=== PATIENT | male | born 1980 | race Caucasian/White ===

== ENCOUNTER 2020-09-01 14:12 | Inpatient (IN) | payer BC, MEDICAID ==
[2020-08-31 22:50] VITALS: BP 120/72
[~2020-09-01] VITALS: Ht 188 cm; Wt 167.8 kg
[~2020-09-01 14:12] MED LIST: OMEP20TA20 PO
[2020-09-01] MEDS ORDERED: IBUP-1957 PO (14:32)
[2020-09-01] MEDS ORDERED: HYDR-4209 PO (14:32)
[2020-09-01] MEDS ORDERED: ROSU10TA2 PO (14:32)
[2020-09-01] MEDS ORDERED: AMLO-212 PO (14:32)
[2020-09-01] MEDS ORDERED: IRBE1TAB33 PO (14:32)
[2020-09-01 15:08] LABS: HEMATOCRIT 35.9 % (36.7-47.1); MEAN CORPUSCULAR HEMOGLOBIN 33.2 uug (23.8-33.4); MEAN CORPUSCULAR VOLUME 97.2 fL (73.0-96.2); PLATELET COUNT (AUTO) 393 K/uL (152-348)
[2020-09-01 15:14] LABS: CREATININE 0.9 mg/dL (0.6-1.3); POTASSIUM 3.4 mmol/L (3.5-5.1)
[2020-09-01 15:30] LABS: BILIRUBIN,DIRECT 0.4 mg/dL (0.0-0.2); BILIRUBIN,TOTAL 0.9 mg/dL (0.2-1.0); TOTAL PROTEIN, SERUM 7.6 g/dL (6.4-8.2)
--- NOTE | 2020-09-01 16:59 | NUR ---
[facility] paged for admission as requested br Jasiel Barboza on-call.
--- NOTE | 2020-09-01 19:15 | NUR ---
Recieved report from Jeff ERICKSON.
--- NOTE | 2020-09-01 20:22 | NUR ---
Gave report to Blanca ERICKSON
--- NOTE | 2020-09-01 20:35 | NUR ---
Pt. admitted to Tele , under care of Jasiel Betancourt DNP Belongs List completed
--- NOTE | 2020-09-01 21:00 | NUR ---
Patient admitted from ER to room number 304 per junior with diagnosis is left pleural effusion and O2 4lpnc, AAOX4, on media production operator and sinus tachycardia, will continue to monitor.
[2020-09-01] MEDS: ATORVASTATIN 40 MG TABLET PO SCH (21:24)
[2020-09-01] MEDS ORDERED: ACETAMINOPHEN 325 MG TABLET PO PRN (22:45)
[2020-09-01] MEDS ORDERED: MAGNESIUM HYDROXIDE 30 ML LIQUID UDC PO PRN (22:45)
[2020-09-01] MEDS ORDERED: Z GUARD REMEDY PASTE 57 GM TUBE TOP PRN (22:45)
[2020-09-01] MEDS ORDERED: ONDANSETRON 4 MG/2 ML VIAL IV PRN (22:45)
[2020-09-01] MEDS: HYDROCODONE/APAP 10-325 MG TABLET PO PRN (23:02)
[2020-09-01] MEDS: ZOLPIDEM 5 MG TABLET PO PRN (23:03)
[2020-09-01] MEDS: IV NS 1000 ML 1,000 ML IV PRN (23:05)
[2020-09-02 04:05] VITALS: BP 121/79
[2020-09-02] MEDS: HYDROCODONE/APAP 10-325 MG TABLET PO PRN ×3 (04:47→21:27)
[2020-09-02 06:11] LABS: HEMATOCRIT 34.9 % (36.7-47.1); MEAN CORPUSCULAR HEMOGLOBIN 33.3 uug (23.8-33.4); MEAN CORPUSCULAR VOLUME 98.1 fL (73.0-96.2); PLATELET COUNT (AUTO) 395 K/uL (152-348)
[2020-09-02] MEDS: PANTOPRAZOLE SODIUM 40 MG TABLET.DR PO SCH (06:18)
[2020-09-02 06:33] LABS: BILIRUBIN,TOTAL 0.9 mg/dL (0.2-1.0); CREATININE 0.9 mg/dL (0.6-1.3); MAGNESIUM 2.1 mg/dL (1.8-2.4); PHOSPHOROUS 4.3 mg/dL (2.5-4.9); POTASSIUM 3.8 mmol/L (3.5-5.1); TOTAL PROTEIN, SERUM 7.2 g/dL (6.4-8.2)
[2020-09-02 06:41] LABS: THYROID STIMULATING HORMONE 4.672 mIU/mL (0.358-3.740)
--- NOTE | 2020-09-02 07:10 | NUR ---
received patient in bed awake, HOB elevated, no complain of any SOB,pain or discomfort at this time. patient on 4L O2 via nasal canula with saturation at 95%. call light within reach will continue to monitor.
[2020-09-02] MEDS: LOSARTAN POTASSIUM 50 MG TABLET PO SCH (09:20)
[2020-09-02] MEDS: AMLODIPINE 5 MG TABLET PO SCH (09:20)
[2020-09-02] MEDS: HYDROCHLOROTHIAZIDE 25 MG TABLET PO SCH (09:21)
[2020-09-02 11:41] VITALS: BP 132/89
[2020-09-02] MEDS ORDERED: LORAZEPAM 2 MG/1 ML VIAL IV ONE (14:30)
[2020-09-02] MEDS ORDERED: MORPHINE SULFATE 2 MG/1 ML DISP.SYRIN IV ONE (14:30)
[2020-09-02] MEDS ORDERED: MORPHINE SULFATE 4 MG/1 ML DISP.SYRIN IV ONE (15:00)
--- NOTE | 2020-09-02 15:00 | NUR ---
thoracentesis done for patient 2000ml out, patient in stable condition. on 2L o2 saturation at 94%. no complains of SOB at this time. will continue to monitor.
[2020-09-02 15:59] VITALS: BP 130/78
--- NOTE | 2020-09-02 17:22 | NUR ---
patient on room air, no complain of any SOB. saturation at 92% -93% at this time. call light and belongings within reach. will continue to monitor.
--- NOTE | 2020-09-02 18:24 | NUR ---
patient awake in bed, in stable condition. on room air saturation at 93%. no complains of SOB at this time. call light and belongings within reach. will report to oncoming shift.
--- NOTE | 2020-09-02 20:00 | NUR ---
Patient complain of sob on exertion, going to the toilet. Patient oxygen sat 90% at room but sob, given 2 liter of oxygen via nc for assist, will cont to monitor.
[2020-09-02 20:05] VITALS: BP 106/55
[2020-09-02] MEDS: ATORVASTATIN 40 MG TABLET PO SCH (20:17)
--- NOTE | 2020-09-02 21:00 | NUR ---
Patient alert oriented, no sob no chest pain, tele monitor sinus rhtyhm sinus tachy, no complain of pain at this time. Patient seated upright on room air, call light within reach.
[2020-09-02] MEDS: ZOLPIDEM 5 MG TABLET PO PRN (21:48)
[2020-09-02] MEDS: IV NS 1000 ML 1,000 ML IV PRN (21:49)
[2020-09-02 22:00] LABS: HEMATOCRIT 34.7 % (36.7-47.1); MEAN CORPUSCULAR HEMOGLOBIN 33.4 uug (23.8-33.4); MEAN CORPUSCULAR VOLUME 97.5 fL (73.0-96.2); PLATELET COUNT (AUTO) 447 K/uL (152-348)
[2020-09-03] VITALS (11 sets, daily range): BP systolic 104–141; BP diastolic 58–85
[2020-09-03] MEDS: HYDROCODONE/APAP 10-325 MG TABLET PO PRN (06:13)
[2020-09-03] MEDS: PANTOPRAZOLE SODIUM 40 MG TABLET.DR PO SCH (06:13)
--- NOTE | 2020-09-03 06:40 | NUR ---
Patient alert oriented, no sob had chest pain due to episode of coughing, cont on pain management of chest and left shoulder due to coughing, Patient was kept on oxygen 2 liters nc for assist. cont to monitor.
--- NOTE | 2020-09-03 07:10 | NUR ---
received patient in bed sleeping in stable condition, HOB elevated, on 2L O2 saturation at 94%. no complains of SOB, pain or discomfort at this time. call light and belongings within reach. will continue to monitor.
[2020-09-03 07:46] LABS: CREATININE 0.9 mg/dL (0.6-1.3); MAGNESIUM 2.3 mg/dL (1.8-2.4); PHOSPHOROUS 3.8 mg/dL (2.5-4.9); POTASSIUM 3.6 mmol/L (3.5-5.1)
[2020-09-03 07:49] LABS: HEMATOCRIT 34.8 % (36.7-47.1); MEAN CORPUSCULAR HEMOGLOBIN 33.6 uug (23.8-33.4); MEAN CORPUSCULAR VOLUME 98.7 fL (73.0-96.2); PLATELET COUNT (AUTO) 411 K/uL (152-348)
[2020-09-03] MEDS: HYDROMORPHONE 1 MG/1 ML DISP.SYRIN IV PRN ×6 (08:23→23:34)
[2020-09-03] MEDS: AMLODIPINE 5 MG TABLET PO SCH (09:00)
[2020-09-03] MEDS: HYDROCHLOROTHIAZIDE 25 MG TABLET PO SCH (09:00)
[2020-09-03] MEDS: LOSARTAN POTASSIUM 50 MG TABLET PO SCH (09:00)
--- NOTE | 2020-09-03 11:15 | NUR ---
Patient observed while preparing for CT guided thoracentesis. Vitals stable although patient was mildly tachycardic throughout procedure at 112 bpm. Patient was hemodynamically stable and oxygen saturation maintained 98-100% on nonrebreather mask for comfort. Patient experienced severe abdominal pain acutely and was given one dose of 1mg Dilaudid IV push. Patient was later returned to room and Antrum chest tube was switch out and connected to wall suction.
[2020-09-03] MEDS ORDERED: HYDROMORPHONE 1 MG/1 ML DISP.SYRIN IV STA (11:30)
[2020-09-03] MEDS: IV NS 1000 ML 1,000 ML IV PRN (12:31)
--- NOTE | 2020-09-03 18:45 | NUR ---
patient back from guided CT guided thoracentesis, vitals stable, complaining of pain. pain medications given. positioned in bed for comfort. will continue to monitor.
--- NOTE | 2020-09-03 18:48 | NUR ---
patient in bed awake, HOB elevated, on 4L nasal canula saturation at 93%, pain medications provided. chest tube draining well with 650ml of serosanguineous fluid out. No complains of SOB at this time. safety precautions in place. call light and belongings within reach.will report to oncoming shift.
--- NOTE | 2020-09-03 20:00 | NUR ---
pain medication given per patient request , pain to his left side and back area 8/10.checked left side chest tube patent and inplaced to low wall suction . will continue to monitor level of pain .patient tolerating 02 at 4 l/min nasal cannula . saturation 98 %
[2020-09-03] MEDS: ATORVASTATIN 40 MG TABLET PO SCH (20:08)
[2020-09-03] MEDS: ALBUTEROL SULFATE 2.5 MG/3 ML NEBU NEB PRN (20:58)
--- NOTE | 2020-09-03 21:07 | NUR ---
called respiratory therapist for breathing treatment .patient on Ventolin q4 hours prn .
[2020-09-03] MEDS: ZOLPIDEM 5 MG TABLET PO PRN (23:35)
[2020-09-04] VITALS: BP 122/69
[2020-09-04] MEDS: IV NS 1000 ML 1,000 ML IV PRN ×2 (02:48→16:03)
[2020-09-04 04:05] VITALS: BP 122/71
[2020-09-04] MEDS ORDERED: HYDROMORPHONE 1 MG/1 ML DISP.SYRIN ONE (05:57)
[2020-09-04] MEDS: PANTOPRAZOLE SODIUM 40 MG TABLET.DR PO SCH (06:04)
[2020-09-04] MEDS: HYDROMORPHONE 1 MG/1 ML DISP.SYRIN IV PRN ×4 (06:04→21:46)
[2020-09-04 06:30] LABS: ABG BASE EXCESS -2.2 mmol/L; ABG HCO3 21.2 mmol/L; ABG PCO2 31.9 mmHg (35.0-45.0); ABG PO2 64.4 mmHg (75.0-100.0); ABG SITE LEFT RADIAL; ABG TOTAL HEMOGLOBIN 11.8 G/dL (13.5-18.0); COHb 1.2 % (0.5-1.5); MetHb 0.2 % (0.0-1.5); O2Hb 90.6 % (94.0-97.0); VENT MODE Nasal Cannula
[2020-09-04 07:42] LABS: HEMATOCRIT 35.4 % (36.7-47.1); MEAN CORPUSCULAR HEMOGLOBIN 33.5 uug (23.8-33.4); MEAN CORPUSCULAR VOLUME 97.5 fL (73.0-96.2); PLATELET COUNT (AUTO) 416 K/uL (152-348)
[2020-09-04 07:50] LABS: CREATININE 0.8 mg/dL (0.6-1.3); MAGNESIUM 2.3 mg/dL (1.8-2.4); POTASSIUM 3.8 mmol/L (3.5-5.1)
[2020-09-04 08:30] VITALS: BP 131/78
[2020-09-04] MEDS: HYDROCHLOROTHIAZIDE 25 MG TABLET PO SCH (08:36)
[2020-09-04] MEDS: AMLODIPINE 5 MG TABLET PO SCH (08:36)
[2020-09-04] MEDS: LOSARTAN POTASSIUM 50 MG TABLET PO SCH (08:37)
[2020-09-04] MEDS: ALBUTEROL SULFATE 2.5 MG/3 ML NEBU NEB PRN ×3 (11:06→21:02)
[2020-09-04 12:00] VITALS: BP 132/76
[2020-09-04 15:44] VITALS: BP 110/62
[2020-09-04] MEDS ORDERED: DEXAMETHASONE SOD PHOSPHATE 4 MG INJ IM ONE (16:15)
[2020-09-04] MEDS ORDERED: KETOROLAC TROMETHAMINE 30 MG INJ IVP ONE (16:15)
--- NOTE | 2020-09-04 18:41 | NUR ---
Patient cooperative with care, noted to have swollen left ankle with redness and pain requiring patient to utilize contact guard for ambulation. Reported to provider and noted that patient has a history of gout. Uric acid level drawn and reported to provider as normal. Patient assessed and acute injury ruled out, patient placed on steroids and toradol. Chest tube adequately draining and on wall suction. Repeated requests for IV dilaudid.
--- NOTE | 2020-09-04 19:00 | NUR ---
Received patient awake and full fowlers in bed. Patient is A/O x4 calm and cooperative. patient is on 4L NC and has a pigtail chest tube draining bloody fluid. Pigtail is attached to a Pleur-evac water suction system, tubes are patent, no leaks detected in the system. Patient is complaining of pain in his chest around the pigtail/site of his fractured ribs. Patient is otherwise in stable condition, low ST on the monitor, SAT 94%, afebrile. No signs of respiratory distress or SOB.
[2020-09-04 20:03] VITALS: BP 119/71
[2020-09-04] MEDS: ATORVASTATIN 40 MG TABLET PO SCH (20:09)
[2020-09-04] MEDS: KETOROLAC TROMETHAMINE 15 MG INJ IVP PRN (21:59)
[2020-09-04] MEDS: ZOLPIDEM 5 MG TABLET PO PRN (23:00)
[2020-09-05 00:03] VITALS: BP 112/66
[2020-09-05] MEDS: HYDROMORPHONE 1 MG/1 ML DISP.SYRIN IV PRN ×4 (00:30→22:34)
[2020-09-05 04:03] VITALS: BP 124/85
[2020-09-05] MEDS: IV NS 1000 ML 1,000 ML IV PRN ×2 (05:30→18:43)
[2020-09-05] MEDS: PANTOPRAZOLE SODIUM 40 MG TABLET.DR PO SCH (06:29)
[2020-09-05 06:37] LABS: HEMATOCRIT 33.7 % (36.7-47.1); MEAN CORPUSCULAR HEMOGLOBIN 32.5 uug (23.8-33.4); MEAN CORPUSCULAR VOLUME 98.2 fL (73.0-96.2); PLATELET COUNT (AUTO) 409 K/uL (152-348)
[2020-09-05 07:01] LABS: CREATININE 0.9 mg/dL (0.6-1.3); MAGNESIUM 2.3 mg/dL (1.8-2.4); POTASSIUM 4.4 mmol/L (3.5-5.1)
--- NOTE | 2020-09-05 07:15 | NUR ---
Received pt. AAOX4. On 3L oxygen with saturation of 93-95%. pt. with no c/of of SOB or chest pain. Left upper back area with pigtail to pleur-evac LIS. no drainage noted, tubing milk with no clots noted. pt. ambulatory and minimal assist to use facility. Will continue with care plan.
[2020-09-05 08:15] VITALS: BP 135/84
[2020-09-05] MEDS: AMLODIPINE 5 MG TABLET PO SCH (08:30)
[2020-09-05] MEDS: LOSARTAN POTASSIUM 50 MG TABLET PO SCH (08:30)
[2020-09-05] MEDS: HYDROCHLOROTHIAZIDE 25 MG TABLET PO SCH (08:31)
[2020-09-05 11:54] VITALS: BP 117/68
[2020-09-05] MEDS: KETOROLAC TROMETHAMINE 15 MG INJ IVP PRN (13:46)
--- NOTE | 2020-09-05 15:22 | NUR ---
Dr. Jasiel Betancourt at bedside and pig-tail flushed 3X with sterile NS. After procedure pig-tail reconnected to pleur-evac to LIC and orders to flushed pigtail with 5cc sterile NS syringe received to be done three times a day with next one to be done at 2330. Addendum: 09/05/20 at 1525 by SHERYL AHN RN pt. tolerated procedure well.
[2020-09-05 16:00] VITALS: BP 128/78
--- NOTE | 2020-09-05 18:32 | NUR ---
Left in bed watching tv. pt. AAOX4. On 3L oxygen with saturation of 94-95%. pt. with no c/of of SOB or chest pain. Left upper back area with pigtail to pleur-evac LIS. with a total of 70cc bloody drainage, dressing c.d.i. no air leaking. pt. ambulatory and minimal assist to use facility. Tolerating diet well with no n.v.d. Will endorse to incoming shift for continuity of care plan.
[2020-09-05] MEDS: ALBUTEROL SULFATE 2.5 MG/3 ML NEBU NEB PRN (19:20)
[2020-09-05 20:03] VITALS: BP 122/68
[2020-09-05] MEDS: ATORVASTATIN 40 MG TABLET PO SCH (20:31)
[2020-09-06 00:03] VITALS: BP 111/67
[2020-09-06] MEDS: ZOLPIDEM 5 MG TABLET PO PRN ×2 (01:07→21:41)
[2020-09-06] MEDS: HYDROMORPHONE 1 MG/1 ML DISP.SYRIN IV PRN ×5 (01:52→20:43)
[2020-09-06] MEDS: KETOROLAC TROMETHAMINE 15 MG INJ IVP PRN ×3 (01:53→23:51)
[2020-09-06 04:03] VITALS: BP 117/75
[2020-09-06] MEDS: PANTOPRAZOLE SODIUM 40 MG TABLET.DR PO SCH (06:49)
[2020-09-06 07:08] LABS: HEMATOCRIT 32.1 % (36.7-47.1); MEAN CORPUSCULAR HEMOGLOBIN 33.4 uug (23.8-33.4); MEAN CORPUSCULAR VOLUME 98.4 fL (73.0-96.2); PLATELET COUNT (AUTO) 423 K/uL (152-348)
[2020-09-06 07:20] LABS: CREATININE 1.3 mg/dL (0.6-1.3); MAGNESIUM 2.4 mg/dL (1.8-2.4); PHOSPHOROUS 5.4 mg/dL (2.5-4.9); POTASSIUM 4.1 mmol/L (3.5-5.1)
[2020-09-06] MEDS: ALBUTEROL SULFATE 2.5 MG/3 ML NEBU NEB PRN ×2 (07:38→10:36)
[2020-09-06 08:00] VITALS: BP 130/86
[2020-09-06] MEDS: IV NS 1000 ML 1,000 ML IV PRN ×2 (08:59→23:48)
[2020-09-06] MEDS: LOSARTAN POTASSIUM 50 MG TABLET PO SCH (09:00)
[2020-09-06] MEDS: AMLODIPINE 5 MG TABLET PO SCH (09:01)
[2020-09-06] MEDS: HYDROCHLOROTHIAZIDE 25 MG TABLET PO SCH (09:01)
[2020-09-06 12:00] VITALS: BP 122/81
[2020-09-06] MEDS: levoFLOXacin 500 MG/D5W 500 MG in PREMIXED 1 EACH IV SCH (12:02)
[2020-09-06 16:11] VITALS: BP 118/74
[2020-09-06 20:00] VITALS: BP 114/65
[2020-09-06] MEDS: ATORVASTATIN 40 MG TABLET PO SCH (20:39)
--- NOTE | 2020-09-06 21:26 | NUR ---
Patient complaining of left back incision site , medicated as needed and ordered. Flushed Pig tail chest tube with difficulty, charge nurse made aware, able to flushed with 5ml NS with slight difficulty on the upper tube after the cock regulator. Will monitor closely.
--- NOTE | 2020-09-06 23:51 | NUR ---
Toradol IVP given as needed and ordered for complaint of left lateral incision site. Will monitor.
[2020-09-07] VITALS: BP 110/44
[2020-09-07 00:17] VITALS: BP 145/63
[2020-09-07 04:06] VITALS: BP 118/81
[2020-09-07 06:20] LABS: HEMATOCRIT 32.1 % (36.7-47.1); MEAN CORPUSCULAR HEMOGLOBIN 33.1 uug (23.8-33.4); PLATELET COUNT (AUTO) 446 K/uL (152-348)
[2020-09-07 06:37] LABS: BILIRUBIN,DIRECT 0.2 mg/dL (0.0-0.2); BILIRUBIN,TOTAL 0.3 mg/dL (0.2-1.0); CREATININE 1.1 mg/dL (0.6-1.3); MAGNESIUM 2.1 mg/dL (1.8-2.4); PHOSPHOROUS 4.8 mg/dL (2.5-4.9); POTASSIUM 4.4 mmol/L (3.5-5.1); TOTAL PROTEIN, SERUM 6.7 g/dL (6.4-8.2)
[2020-09-07] MEDS: PANTOPRAZOLE SODIUM 40 MG TABLET.DR PO SCH (06:38)
[2020-09-07] MEDS: LOSARTAN POTASSIUM 50 MG TABLET PO SCH (08:43)
[2020-09-07] MEDS: AMLODIPINE 5 MG TABLET PO SCH (08:43)
[2020-09-07] MEDS: HYDROCHLOROTHIAZIDE 25 MG TABLET PO SCH (08:44)
[2020-09-07] MEDS: HYDROMORPHONE 1 MG/1 ML DISP.SYRIN IV PRN ×4 (08:44→22:11)
--- NOTE | 2020-09-07 09:42 | NUR ---
Seen by Dr Maloney. aware of chest tube drainage difficulty. Received verbal order to flush chest tube, able to flush 3 cc of sterile saline before hitting resistance and unable to advance further. MD aware.
--- NOTE | 2020-09-07 09:45 | NUR ---
Per patient, given PCP contact information and verbalized authorization to update doctor of patient condition: Dr Erasmo Fountain [phone]
[2020-09-07] MEDS: levoFLOXacin 500 MG/D5W 500 MG in PREMIXED 1 EACH IV SCH (11:26)
[2020-09-07 11:54] VITALS: BP 127/76
--- NOTE | 2020-09-07 13:10 | NUR ---
Seen by Dr Louis. See MD notes for new orders and updated plan of care.
[2020-09-07] MEDS: IV NS 1000 ML 1,000 ML IV PRN (15:52)
[2020-09-07 16:04] VITALS: BP 113/71
[2020-09-07] MEDS ORDERED: BISMUTH SUBSALICYLATE 262 MG/15 ML UDC PO PRN (17:00)
[2020-09-07 20:04] VITALS: BP 116/59
[2020-09-07] MEDS: ATORVASTATIN 40 MG TABLET PO SCH (20:21)
--- NOTE | 2020-09-07 22:11 | NUR ---
Complaint of left lateral incision site pain in scale of 7/10, Dilaudid IVP given as ordered and needed. Will monitor.
[2020-09-08 00:02] VITALS: BP_SYST 120; BP_SYST 121; BP_DIAS 63; BP_DIAS 79
[2020-09-08] MEDS: ZOLPIDEM 5 MG TABLET PO PRN (00:19)
[2020-09-08] MEDS: HYDROMORPHONE 1 MG/1 ML DISP.SYRIN IV PRN ×5 (04:58→23:52)
[2020-09-08] MEDS: IV NS 1000 ML 1,000 ML IV PRN ×2 (05:04→20:52)
--- NOTE | 2020-09-08 06:14 | NUR ---
Seen by Dr. Marina with no new order noted. Instructed the charge nurse that Dr. Hunter will be coming to check patient pig tail chest tube. Will indorse.
[2020-09-08] MEDS: PANTOPRAZOLE SODIUM 40 MG TABLET.DR PO SCH (06:32)
--- NOTE | 2020-09-08 07:15 | NUR ---
During morning rounds, patient states that he's been on room air since 0400 and have not felt the need to have it or any SOB. Will closely monitor patient. Call light within reach.
[2020-09-08] MEDS: AMLODIPINE 5 MG TABLET PO SCH (08:36)
[2020-09-08] MEDS: LOSARTAN POTASSIUM 50 MG TABLET PO SCH (08:36)
[2020-09-08] MEDS: HYDROCHLOROTHIAZIDE 25 MG TABLET PO SCH (08:36)
--- NOTE | 2020-09-08 11:05 | NUR ---
Patient complaining of 8/10 pain. Given PRN dilaudid as ordered.
[2020-09-08] MEDS: levoFLOXacin 500 MG/D5W 500 MG in PREMIXED 1 EACH IV SCH (11:48)
[2020-09-08 12:00] VITALS: BP 138/98
[2020-09-08 16:15] VITALS: BP 126/80
[2020-09-08] MEDS ORDERED: NORMAL SALINE XX ONE (17:30)
[2020-09-08] MEDS ORDERED: ALTEPLASE XX ONE (17:30)
--- NOTE | 2020-09-08 18:30 | NUR ---
Assisted Missy HALL at bedside to de-clog chest tube access. MD flushed in 100 ml of alteplase in over 5 mins. MD will return in 4 hours to declamp chest tube and restart suction. Will endorse to oncoming RN.
[2020-09-08 20:00] VITALS: BP 105/54
[2020-09-08] MEDS: ATORVASTATIN 40 MG TABLET PO SCH (20:42)
--- NOTE | 2020-09-08 20:42 | NUR ---
PATIENT CALLED ASKING FOR PAIN MEDICATION VERBALIZED PAIN LEFT SIDE -POST TUBE SITE AND BACK AREA . GIVEN DILAUDID PRN . SEE EMAR
--- NOTE | 2020-09-08 21:51 | NUR ---
CHEST TUBE SITE CLAMP S/P -ALTEPASE BY BERNICE ROCHE . NO SOB NO RESPIRATORY DISTRESS NOTED .
--- NOTE | 2020-09-08 23:30 | NUR ---
:MELCHOR ORDER TO CONNECT CHEST TUBE TO LOW CONTINUOUS WALL SUCTION ,DONE PATENT SITE IS PATENT AND CHEST TUBE PATENT ,CHANGED CHEST TUBE DRESSING.WITH GOOD LARGE AMT OF SEROSANGUINEOUS OUTPUT ,WILL RECORD INTAKE AND OUTPUT AT THE END OF SHIFT .
[2020-09-09] VITALS: BP 112/71
[2020-09-09] MEDS: HYDROCODONE/APAP 10-325 MG TABLET PO PRN ×2 (00:31→20:27)
[2020-09-09] MEDS: ZOLPIDEM 5 MG TABLET PO PRN ×2 (00:32→22:41)
--- NOTE | 2020-09-09 00:40 | NUR ---
PATIENT CALLED AND REQUESTING FOR SLEEPING MEDICATION ,PATIENT ALSO VERBALIZED HIS STILL HAVE PAIN TO HIS LEFT SIDE ,CHEST TUBE SITE IS 6/10 AND WANTS ANOTHER PAIN MEDICATION . GIVEN JACQUELYN AND ABRIL FOR SLEEP .
[2020-09-09] MEDS: KETOROLAC TROMETHAMINE 15 MG INJ IVP PRN ×2 (03:14→10:19)
[2020-09-09 04:00] VITALS: BP 106/71
[2020-09-09] MEDS: PANTOPRAZOLE SODIUM 40 MG TABLET.DR PO SCH (06:25)
[2020-09-09 06:31] LABS: HEMATOCRIT 33.9 % (36.7-47.1); MEAN CORPUSCULAR HEMOGLOBIN 33.2 uug (23.8-33.4); MEAN CORPUSCULAR VOLUME 95.9 fL (73.0-96.2); PLATELET COUNT (AUTO) 453 K/uL (152-348)
[2020-09-09 06:54] LABS: CREATININE 1.1 mg/dL (0.6-1.3); MAGNESIUM 1.7 mg/dL (1.8-2.4); PHOSPHOROUS 4.8 mg/dL (2.5-4.9); POTASSIUM 3.8 mmol/L (3.5-5.1)
--- NOTE | 2020-09-09 08:00 | NUR ---
RECEIVED CHANGE OF SHIFT REPORT. PT S/P FALL WITH BROKEN RIBS, A/OX4, ON TELE MONITOR, SINUS TACHY 118, ON ROOM AIR, NO SIGNS OF DISTRESS, AMBULATORY WITH BRP. PT HAS URINAL AT BEDSIDE. IV ON THE LEFT AC 20G INFUSING NS AT 75. PT HAS PIGTAIL CHEST TUBE DRAINING WELL, LEVEL AT 1840, WILL CONTINUE TO MONITOR. BED LOW AND LOCKED, CALL LIGHT WITHIN REACH.
[2020-09-09] MEDS: LOSARTAN POTASSIUM 50 MG TABLET PO SCH (09:51)
[2020-09-09] MEDS: AMLODIPINE 5 MG TABLET PO SCH (09:52)
[2020-09-09] MEDS: HYDROCHLOROTHIAZIDE 25 MG TABLET PO SCH (09:52)
[2020-09-09] MEDS: MAGNESIUM SULFATE/D5W 100 ML IV SCH ×2 (09:52→11:29)
[2020-09-09] MEDS: HYDROMORPHONE 1 MG/1 ML DISP.SYRIN IV PRN ×4 (10:45→22:41)
[2020-09-09 11:59] VITALS: BP 114/60
[2020-09-09] MEDS: IV NS 1000 ML 1,000 ML IV PRN (12:24)
[2020-09-09] MEDS: levoFLOXacin 500 MG/D5W 500 MG in PREMIXED 1 EACH IV SCH (12:24)
--- NOTE | 2020-09-09 14:30 | NUR ---
ATTEMPTED TO FLUSH PIGTAIL CHEST TUBE, RESISTANCE WAS MET. TWO LARGE BLOOD CLOTS WERE TAKEN OUT. DR ROCHE ATTEMPTED TO CLEAR THE TUBE WELL, UNSUCCESSFUL. MD USED THE WIRE TO CLEAR, BUT STILL UNABLE TO FLUSH. MD ORDERED STAT CXR, WILL CONTINUE TO MONITOR.
[2020-09-09 15:56] VITALS: BP 120/60
--- NOTE | 2020-09-09 19:30 | NUR ---
Report received. Patient AAO, coughing non productively. C/o pain to L pigtail insertion site. Medicated with Dilaudid IV. Able to make needs known. Pigtail in place and to pleur-evac chest drainage system with 20 cm continuous suction. No drainage noted. Addendum: 09/10/20 at 0052 by ELISE JIMÉNEZ RN Amended: Links added.
[2020-09-09 20:00] VITALS: BP 103/54
[2020-09-09] MEDS: ATORVASTATIN 40 MG TABLET PO SCH (20:26)
--- NOTE | 2020-09-09 21:05 | NUR ---
Results of repeat CXR @ [address] Louis. Addendum: 09/09/20 at 2106 by ELISE JIMÉNEZ RN Amended: Links added.
--- NOTE | 2020-09-09 23:00 | NUR ---
Attempted to flush pigtail but unable to. Dr. Louis informed.
[2020-09-10 00:01] VITALS: BP 112/67
[2020-09-10] MEDS: IV NS 1000 ML 1,000 ML IV PRN ×2 (03:14→15:47)
[2020-09-10 04:00] VITALS: BP 114/61
[2020-09-10] MEDS: PANTOPRAZOLE SODIUM 40 MG TABLET.DR PO SCH (06:06)
[2020-09-10] MEDS: HYDROMORPHONE 1 MG/1 ML DISP.SYRIN IV PRN ×6 (06:10→22:37)
--- NOTE | 2020-09-10 06:26 | NUR ---
Stable all night. L chest Pigtail intact and continuously to drainage system with 20 cm suction. No drainage noted. Dressing dry, intact. Dilaudid 1 mg IV given 3 times during the shift with good effect. No SOB. Addendum: 09/10/20 at 0626 by ELISE JIMÉNEZ RN Amended: Links added.
[2020-09-10 06:36] LABS: HEMATOCRIT 34.4 % (36.7-47.1); MEAN CORPUSCULAR HEMOGLOBIN 33.4 uug (23.8-33.4); MEAN CORPUSCULAR VOLUME 97.7 fL (73.0-96.2); PLATELET COUNT (AUTO) 371 K/uL (152-348)
[2020-09-10 06:52] LABS: CREATININE 0.9 mg/dL (0.6-1.3); MAGNESIUM 2.2 mg/dL (1.8-2.4); PHOSPHOROUS 4.9 mg/dL (2.5-4.9); POTASSIUM 4.2 mmol/L (3.5-5.1)
[2020-09-10] MEDS: LOSARTAN POTASSIUM 50 MG TABLET PO SCH (08:39)
[2020-09-10] MEDS: HYDROCHLOROTHIAZIDE 25 MG TABLET PO SCH (08:39)
[2020-09-10] MEDS: AMLODIPINE 5 MG TABLET PO SCH (08:40)
--- NOTE | 2020-09-10 11:18 | NUR ---
seen and examined by Dr. Maurisio dr. aware of the current cxr result,
[2020-09-10 12:00] VITALS: BP 104/59
[2020-09-10] MEDS: levoFLOXacin 500 MG/D5W 500 MG in PREMIXED 1 EACH IV SCH (12:13)
[2020-09-10 15:53] VITALS: BP 92/53
[2020-09-10] MEDS: HYDROCODONE/APAP 10-325 MG TABLET PO PRN (16:21)
[2020-09-10] MEDS ORDERED: HYDROMORPHONE 1 MG/1 ML DISP.SYRIN IV ONE (18:20)
--- NOTE | 2020-09-10 18:42 | NUR ---
Dr. Forde, removed chest drainage, pain meds given , patient tolerated procedure, dressing applied on the site
[2020-09-10] MEDS: KETOROLAC TROMETHAMINE 15 MG INJ IVP PRN (19:56)
[2020-09-10] MEDS: ATORVASTATIN 40 MG TABLET PO SCH (20:00)
[2020-09-10 20:03] VITALS: BP 101/58
[2020-09-11] VITALS: BP 101/60
[2020-09-11 04:03] VITALS: BP 105/60
[2020-09-11] MEDS: KETOROLAC TROMETHAMINE 15 MG INJ IVP PRN ×2 (04:05→10:03)
[2020-09-11] MEDS: PANTOPRAZOLE SODIUM 40 MG TABLET.DR PO SCH (06:00)
--- NOTE | 2020-09-11 06:07 | NUR ---
No notable events to report. Toradol given x 2 - Dilaudid given x 1 ---- Educated to try Toradol and if pain persists we can move to Dilaudid - understood and agreed with good effect. Slight pain with inspiration. No SOB. AM CXR pending as of writing this note.
[2020-09-11 06:16] LABS: HEMATOCRIT 33.6 % (36.7-47.1); MEAN CORPUSCULAR HEMOGLOBIN 32.5 uug (23.8-33.4); MEAN CORPUSCULAR VOLUME 97.1 fL (73.0-96.2); PLATELET COUNT (AUTO) 380 K/uL (152-348)
[2020-09-11] MEDS: IV NS 1000 ML 1,000 ML IV PRN (06:20)
[2020-09-11 06:33] LABS: CREATININE 1.1 mg/dL (0.6-1.3); MAGNESIUM 2.1 mg/dL (1.8-2.4); PHOSPHOROUS 5.2 mg/dL (2.5-4.9); POTASSIUM 4.5 mmol/L (3.5-5.1)
--- NOTE | 2020-09-11 07:04 | NUR ---
Dr. Brennan Manual Arts Teacher has assessed patient and cleared patient for discharged pending primary approval.
[2020-09-11 08:00] VITALS: BP 102/69
[2020-09-11] MEDS: HYDROCHLOROTHIAZIDE 25 MG TABLET PO SCH (08:28)
[2020-09-11] MEDS: LOSARTAN POTASSIUM 50 MG TABLET PO SCH (08:28)
[2020-09-11] MEDS: AMLODIPINE 5 MG TABLET PO SCH (08:28)
[2020-09-11] MEDS: levoFLOXacin 500 MG/D5W 500 MG in PREMIXED 1 EACH IV SCH (11:03)
--- NOTE | 2020-09-11 11:09 | NUR ---
alert, oriented, and appropriate. c/o pain on back, and left side of body where chest tube was. Toradol 15mg ivp given. Made aware if the med did not relieve the pain, we can given him [place] if he wishes. checked back, pain under control
[2020-09-11 11:32] VITALS: BP 110/68
[2020-09-11] MEDS ORDERED: HYDR-3980 PO (12:46)
[2020-09-11] MEDS ORDERED: LEVO500T90 PO (12:46)
--- NOTE | 2020-09-11 14:03 | NUR ---
seen by attending, who is aware of today xray. patient is discharged to home, with RX to picker and sorter load and unload on the way home ( Levaquin, po,x 3 more days, and [place] for pain) explained, and verbalized understanding. Monitor heart, HL out, patient left the floor at 1400, alert, oriented, in no distress, and no c/o of pain
== END 2020-09-11 13:00 | disposition home or self-care (01) | DRG 183 ==
LOC: ER 14:12 → TELE3 20:19 → MEDSURG3 09-08 10:49 → TELE3 09-08 23:08
PROVIDERS: ADMIT Nurse Practitioner Acute Care; ATTEND Nurse Practitioner Acute Care
PROC: 0W9B3ZZ Drainage of Left Pleural Cavity, Percutaneous Approach (ICD-10-PCS; principal; 2020-09-02)
PROC: 0W9B30Z Drainage of Left Pleural Cavity with Drainage Device, Percutaneous Approach (ICD-10-PCS; 2020-09-03)
PROC: 3C1ZX8Z Irrigation of Indwelling Device using Irrigating Substance, External Approach (ICD-10-PCS; 2020-09-05)
DX: S22.42XA Multiple fractures of ribs, left side, initial encounter for closed fracture (principal); J18.9 Pneumonia, unspecified organism; J96.01 Acute respiratory failure with hypoxia; S27.1XXA Traumatic hemothorax, initial encounter; J91.8 Pleural effusion in other conditions classified elsewhere; S27.321A Contusion of lung, unilateral, initial encounter; Z68.42 Body mass index [BMI] 45.0-49.9, adult; T85.698A Other mechanical complication of other specified internal prosthetic devices, implants and grafts, initial encounter; W19.XXXA Unspecified fall, initial encounter; Y92.89 Other specified places as the place of occurrence of the external cause; E66.01 Morbid (severe) obesity due to excess calories; E87.6 Hypokalemia; J45.909 Unspecified asthma, uncomplicated; M10.9 Gout, unspecified; I11.9 Hypertensive heart disease without heart failure; F17.210 Nicotine dependence, cigarettes, uncomplicated; Z80.0 Family history of malignant neoplasm of digestive organs; E78.5 Hyperlipidemia, unspecified; D53.9 Nutritional anemia, unspecified; D75.89 Other specified diseases of blood and blood-forming organs
CPT/HCPCS: 32555; 36415; 36600; 70030-TC; 71045; 71101; 71250; 83735; 84100; 84443; 84550; 85025; 85730; 86140; 86803; 87070; 87205; 87806; 93005; 94640; 94664; A4217; A4663; G0378; J1100; J1170; J1885; J1956; J2060; J2270; J2997; J3475; J3490; J7030